=== PATIENT | female | born 1990 | race Caucasian/White ===

== ENCOUNTER 2017-01-13 20:02 | Inpatient (IN) | payer BC, MEDICAID ==
[2016-11-05 08:27] VITALS: BMI 17.7
[2017-01-13] MEDS: Lactated Ringer's 1,000 ML IV SCH (20:30)
--- NOTE | 2017-01-13 20:51 | OBADHP ---
Datetime: 01/13/2017 20:38 IP Adm Impression Other: early labor Admit Comment, IP Provider: chief complaint-contractions HPI 26 y/o at 39.5 wga with c/o brown dischareg since [facility] [address]was seen in the offiec and advi sed to come to hospital but she did not come as she was not feeling any contractions.This evening she starte dfeeling te contractions and hence she came in for evalaution Patient denies any abdominal trauma, vaginal bleeding course complicate dby anemia; care withd ayde zaldivar; NONCOMPLIANT pmh palpitations PSH denies OBGYJ HX ; TOPX1 Social hx denies tobacco,alcohol or illcit drug use Exam see exam section A/P 26 y/o at 39.5 wga in labor.FHT nonreassuring -discussed with patient about csection.risks and ebenfits of csection discussed with patient .Surg ical risks discussed.Patient voices understanding the risks and edesires to proceed Informed consent signed and on chart Anesthesia called Pelvic Type - PN: Adequate Extremities - PN: Normal Abdomen - PN: Normal Back - PN: Normal Breast - PN: Normal Lungs - PN: Normal Heart - PN: Normal Neurologic - PN: Normal General - PN: Normal Gestation - Est Wks by US: 39.5 Vital Signs Provider: Reviewed IP Chief Complaint: Uterine contractions FHR Category Provider Fetus A: Category II Dilatation, Provider: ft Effacement, Provider: 50 Station, Provider: -3 Genitourinary Exam: Normal DTRs - PN: Normal EGA AdmitDate IP: 39.5 IP Adm Impression: Term, intrauterine IP Admit Plan: Admit to unit
[2017-01-13] MEDS ORDERED: Sodium Citrate/Citric Acid 15 ml Sol PO ONE (20:56)
[2017-01-13] MEDS ORDERED: cefOXitin IV 2 gm in Dextrose 50 ML IVPB ONE ×2 (20:56→20:59)
[2017-01-13] MEDS ORDERED: Sodium Citrate/Citric Acid 15 ml Sol ONE (20:59)
[2017-01-13 21:03] LABS: RBC URINE 13 /hpf (0-3); URINE BACTERIA MOD (<OCC); URINE BILIRUBIN NEGATIVE (NEGATIVE); URINE BLOOD 1+ (NEGATIVE); URINE COLOR Yellow (YELLOW); URINE GLUCOSE (UA) 1+ mg/dL (Normal); URINE KETONE TRACE mg/dL (NEGATIVE); URINE LEUKOCYTE ESTERASE NEG Leu/uL (Negative); URINE PROTEIN 1+ mg/dL (NEGATIVE); URINE UROBILINOGEN NORMAL mg/dL (0.2-1.0); WBC URINE 2 /hpf (0-5)
[2017-01-13 21:07] LABS: BASO % 0.3 % (0.0-2.0); CHLORIDE 99 mmol/L (98-107); EOS # 0.1 K/uL (0.0-0.7); EOS % 0.4 % (0.0-4.0); HEMATOCRIT 39.4 % (34.0-47.0); LYMPH % 13.1 % (20.0-40.0); MEAN CELL VOLUME 92.5 fL (81.0-99.0); MEAN CORPUSCULAR HEMOGLOBIN 30.1 pg (27.0-31.0); MEAN CORPUSCULAR HGB CONC 32.6 g/dL (33.0-37.0); MEAN PLATELET VOLUME 10.1 fL (7.2-11.7); MONO # 1.3 K/uL (0.0-0.8); MONO % 8.3 % (0.0-10.0); NRBC % 0.1 % (0.0-2.0); RED CELL DISTRIBUTION WIDTH 15.4 % (11.5-14.5); SODIUM 136 mmol/L (132-148); WHITE BLOOD COUNT 15.7 K/uL (4.8-10.8)
[2017-01-13 21:08] LABS: POTASSIUM 3.9 mmol/L (3.6-5.2)
[2017-01-13 21:10] LABS: ALB/GLOB RATIO 1.2 (1.0-2.1); ALKALINE PHOSPHATASE 151 U/L (38-126); AST/SGOT 21 U/L (14-36); BILIRUBIN,TOTAL 0.5 mg/dL (0.2-1.3); CARBON DIOXIDE 22 mmol/L (22-30); GFR AFRICAN-AMERICAN > 60; TOTAL PROTEIN 7.1 g/dL (6.3-8.3)
[2017-01-13 21:11] LABS: ALT/SGPT 35 U/L (9-52); BLOOD UREA NITROGEN 10 mg/dL (7-17); CALCIUM 8.7 mg/dl (8.6-10.4); GLUCOSE,RANDOM 102 mg/dL (65-105)
[2017-01-13] MEDS ORDERED: ePHEDrine 50 mg/ml Inj ONE (21:27)
[2017-01-13] MEDS ORDERED: Morphine 1 mg/ml preservative-free Inj(Duramorph) ONE (21:28)
[2017-01-13] MEDS: cefOXitin IV 2 gm in Dextrose 50 ML IVPB SCH (21:30)
--- NOTE | 2017-01-13 22:39 | OBDS ---
DELIVERY PERSONNEL Delivery Doctor: Emmy Chapa MD Scrub Nurse: Cassandra Rocha OBT Soil Technician: Isabelle Bernstein RN Anesthesiologist: MATERNAL INFORMATION Delivery Anesthesia: Spinal Estimated Blood Loss (ml): 700 Maternal Complications: None Provider Comments: primary csection doen for nonreassuirng tracing apagsr 9/ at1 and 5 min of life ebl 700cc patient and infant stable LABOR SUMMARY EDC: 01/15/2017 00:00 LABOR INFORMATION Onset of Labor: 01/13/2017 19:00 STAGES OF LABOR Stage 3 hrs: 0 Stage 3 min: 1 Total Time in Labor hrs: 3 Total Time in Labor min: 1 CSECTION DELIVERY Primary Indication: Nonreassuring Status CSection Urgency: Emergency CSection Incidence: Primary Labor: Labor CSection Incision: Lower Uterine Transverse Uterine Closure: Double-layer closure BABY A INFORMATION Infant Delivery Date/Time: 01/13/2017 22:00 Method of Delivery: Born in Route : No : N/A Forceps: N/A Vacuum Extraction: N/A Shoulder Dystocia : No SHOULDER DYSTOCIA BABY A Delivery Date/Time: 01/13/2017 22:00 PRESENTATION/POSITION BABY A Presentation: Cephalic Cephalic Presentation: Vertex Vertex Position: Right Occipital Posterior Breech Presentation: N/A PLACENTA INFORMATION BABY A Placenta Delivery Time : 01/13/2017 22:01 Placenta Method of Delivery: Manual Removal Placenta Status: Delivered SCORES BABY A Heart Rate 1 min: >100 bpm Resp Effort 1 min: Good Cry Reflex Irritability 1 min: Cough or Sneeze or Pulls Away Muscle Tone 1 min: Active Motion Color 1 min: Body [place], Extremities Blue Resuscitation Effort 1 min: Tactile Stimulation SCORE 1 MIN: 9 Heart Rate 5 min: >100 bpm Resp Effort 5 min: Good Cry Reflex Irritability 5 min: Cough or Sneeze or Pulls Away Muscle Tone 5 min: Active Motion Color 5 min: Body [place], Extremities Blue SCORE 5 MIN: 9 INFORMATION BABY A Gestational Age at Delivery: 39.5 Gestational Status: Term Infant Outcome : Liveborn Infant Condition : Stable Infant Sex: Female IDENTIFICATION/MEDS BABY A ID Band Number: [id number] ID Band Location: Left Leg; Left Arm Sensor Applied: Yes Sensor Number: [id number] Sensor Location : Cord Clamp WEIGHT/LENGTH BABY A Birthweight (gms): 3020 Infant Weight (lb): 6 Weight (oz): 10 Length Inches: 19.00 Length cms: 48.3 CORD INFORMATION BABY A No. Cord Vessels: 3 Nuchal Cord : N/A Cord Blood Taken: Yes Suction: Mouth; Nose ASSESSMENT BABY A Complications: None Physical Findings at Delivery: Within Normal Limits Respirations: Appears Normal Social Sciences Lecturer/ALS Called : No Care By: /JORY GRANDA Transferred To: Nursery
[2017-01-14] MEDS ORDERED: cefOXitin IV 2 gm in Dextrose 50 ML IVPB ONE ×2 (05:00→13:41)
[2017-01-14] MEDS: Lactated Ringer's 1,000 ML IV SCH (05:01)
[2017-01-14] MEDS: cefOXitin IV 2 gm in Dextrose 50 ML IVPB SCH ×3 (05:02→14:24)
[2017-01-14 07:24] LABS: EOS % 0.2 % (0.0-4.0); LYMPH # 1.9 K/uL (1.0-4.3); MEAN CORPUSCULAR HEMOGLOBIN 30.2 pg (27.0-31.0); MEAN PLATELET VOLUME 10.6 fL (7.2-11.7); MONO # 1.1 K/uL (0.0-0.8)
[2017-01-14 07:37] LABS: BASO % 0.1 % (0.0-2.0); HEMATOCRIT 31.1 % (34.0-47.0); LYMPH % 11.2 % (20.0-40.0); MEAN CELL VOLUME 93.1 fL (81.0-99.0); MEAN CORPUSCULAR HGB CONC 32.4 g/dL (33.0-37.0); MONO % 6.9 % (0.0-10.0); RED CELL DISTRIBUTION WIDTH 15.1 % (11.5-14.5); WHITE BLOOD COUNT 16.5 K/uL (4.8-10.8)
--- NOTE | 2017-01-14 07:41 | OBPPN ---
Datetime: 01/14/2017 07:37 PP Pain Prov: Within normal limits PP Nausea Prov: Denies PP Flatus Prov: No PP Comments Phys Exam Prov: fudus below umblic ext mild edema,no cald ten incision clean and dry PP Impression Prov: Normal progression PP Plan Prov: Continue present management PP Progress Note Prov: pt was seen at bed side, pain under control,no n/v, tolerating deit,voiding,m in ocha, flatuas+ pod#1 s/p c/s cbc reg deit encourage ambulation cont post op care Vital Signs Provider PP: Reviewed; Within Normal Limits
--- NOTE | 2017-01-14 08:11 | OP ---
PROCEDURE DATE: 01/13/2017 PREOPERATIVE DIAGNOSES: 1. Nonreassuring heart tracing. 2. Term intrauterine . POSTOPERATIVE DIAGNOSES: 1. Nonreassuring heart tracing. 2. Term intrauterine . PROCEDURE PERFORMED: Primary lower transverse section. SURGEON: Christiano Chapa MD SPECIAL EDUCATION RESOURCE TEACHER: Dr. Gio Avendano. Please note that the procedure required a surgical scheduler to assist wit h the entry into the abdominal cavity, to assist with the delivery of the infant and to assist with t he closure of the abdominal wall layers. The surgical services director was present and scrubbed for the ent sole duration of the procedure. ANESTHESIA: Spinal. ANESTHESIOLOGIST: Dr. Hensley COMPLICATIONS: None. ESTIMATED BLOOD LOSS: 700 mL. FINDINGS: A female infant in direct occiput posterior position with Apgars of 9 at 1 minute and 9 at 5 minutes. Normal uterus, tubes, and ovaries. weight of the infant being 6 pounds 10 ounces. PROCEDURE IN DETAIL: The patient is a 26-year-old female who presented at 39 weeks and 5 days in ear ly labor. She was found to have a nonreassuring heart tracing and thereafter she was consented for primary section. Prior to the section, there was a discussion done and the risk of ble eding, infection, injury to nearby organs as well as risk of amniotic fluid embolism, , etc., wa s discussed with patient. The patient voiced understanding of the risks with the surgery and desired to proceed. All questions were answered. Once inside the OR, the spinal anesthesia was then admini stered by the anesthesia team and thereafter, she was placed in dorsal supine position with a leftwar d tilt. She was then prepped and draped in the usual sterile manner. A Bello catheter had already b een placed transurethrally prior to bringing the patient to the OR. A Pfannenstiel skin incision was then made with the scalpel and carried through to the underlying layer of fascia with the help of rosalba acuna Bovie. The fascia was then incised in the midline and the incision extended laterally with Ndiaye sc issors. The superior aspect of the fascial incision was then grasped with Ashly clamps, elevated, a nd the underlying rectus muscles dissected off. Attention was then turned to the inferior aspect of the fascial incision, which in a similar fashion was grasped with Ashly clamps, elevated, and the un derlying rectus muscle dissected off. The rectus muscle was then in the midline and the pe ritoneum was entered bluntly. The peritoneum was bluntly stretched. Bladder blade was then inserted and vesicouterine peritoneum identified. A transverse incision was made over the vesicouterine eri toneum with the help of Metzenbaum scissors and this incision extended laterally sharply with the hel p of Metzenbaum scissors. Then, a bladder flap was thereafter created sharply. The bladder blade wa s reinserted and the lower uterine segment identified. A transverse incision was made over the lower uterine segment with the help of a fresh scalpel. The hysterotomy was bluntly stretched. The membr anes were ruptured and meconium stained amniotic fluid was noted. The infant's head was then deliver ed from a direct occiput posterior position. The body and the shoulders were delivered without any d ifficulty and the cord was then clamped and cut. The was handed over to the waiting pediatric ians. A segment of the cord was taken in order to obtain cord blood pH. Cord blood was thereafter c ollected and the placenta was then manually removed and uterus was exteriorized and cleared of all cl ots and debris. The uterine incision was repaired with 0 Polysorb in a running-locked fashion. A se cond layer of same suture was used to imbricate the first layer and also to obtain hemostasis. Adequ ate hemostasis was noted from the uterine incision repair site. The cul-de-sac and the pelvis was ir rigated and suctioned. The uterus was then returned to the patient's abdomen. The hysterotomy was i nspected for hemostasis and adequate hemostasis was noted from it. The bladder flap was inspected fo r hemostasis and a bleeding point on the bladder flap was noted and this was cauterized. Thereafter, adequate hemostasis was noted. The bleeding point on the bladder flap was noted to be away from the bladder and then only it was cauterized. Surgicel was placed over the uterine incision repair site. The peritoneum was then closed with 2-0 Polysorb in a running fashion. The muscle layer was reappr oximated with 2-0 Polysorb in a continuous manner. The fascia was closed with 0 Vicryl in a running fashion. The skin was then closed with andrade. The sponge, lap, needle, and instrument count was c orrect at the end of the procedure, as reported to me. The patient tolerated the procedure well. Th e patient was thereafter cleaned and taken to the recovery room in stable condition. Christiano Chapa MD cc: [id number] TT: 01/14/2017 08:10:57 en
[2017-01-14] MEDS: Simethicone 80 mg Chewtab PO SCH ×3 (13:04→21:51)
[2017-01-15] MEDS: Oxycodone/Acetaminophen 5/325 mg Tab PO PRN ×3 (01:31→16:58)
[2017-01-15] MEDS: Simethicone 80 mg Chewtab PO SCH ×5 (09:52→23:00)
[2017-01-15] MEDS ORDERED: Influenza Virus Vaccine 45 mcg/0.5 ml Syr IM ONE (17:43)
[2017-01-15 20:33] LABS: BASO % 0.3 % (0.0-2.0); EOS # 0.2 K/uL (0.0-0.7); HEMATOCRIT 30.4 % (34.0-47.0); LYMPH # 1.9 K/uL (1.0-4.3); LYMPH % 11.8 % (20.0-40.0); MEAN CELL VOLUME 92.8 fL (81.0-99.0); MEAN CORPUSCULAR HEMOGLOBIN 30.3 pg (27.0-31.0); MEAN CORPUSCULAR HGB CONC 32.6 g/dL (33.0-37.0); MONO # 1.5 K/uL (0.0-0.8); MONO % 9.5 % (0.0-10.0); NRBC % 0.1 % (0.0-2.0); RED CELL DISTRIBUTION WIDTH 14.9 % (11.5-14.5); WHITE BLOOD COUNT 16.1 K/uL (4.8-10.8)
--- NOTE | 2017-01-15 23:43 | OBPPN ---
Datetime: 01/15/2017 18:51 PP Pain Prov: Within normal limits PP Nausea Prov: Denies PP Flatus Prov: No PP BM Prov: No PP Breasts Prov: Normal PP Heart Prov: Normal PP Lungs Prov: Normal PP Abdomen/Uterus Prov: Normal PP Lochia Prov: Normal PP Vulva/Perineum Prov: Not Done PP CVA Tenderness Prov: Normal PP Extremities Prov: Normal PP C/S Incision Prov: Normal PP Progress Prov: Normal PP Comments Phys Exam Prov: Skin: warm, dry, intact HEENT: full ROM Breasts: right nipple slightly bruised; otherwise, no masses. Not engorged Lungs: CTA bilaterally Cardiac: mild tachycardia; normal S1, S2 Abdomen: Softly distended. (+) BS. Incision with subcuticular closure - clean, dry and intact Extremities: no calf tenderness, cyanosis or edema All other systems reviewed and are negative PP Impression Prov: Normal progression PP Plan Prov: Continue present management PP Progress Note Prov: Patient seen and evaluated earlier in the morning: at that time received in b ed; FOB present. C/O incisional pain, pain scale 9/10. At approximately 1100 hours received percocet "which isn't doing much for me"; pain scale after 8/10. has not received any motrin. Ambulating somew hat in her room to bathroom; voiding without difficulty. (-) flatus; (-) BM. Breast- and bottlefeedin g P.E.: as above. WD in NAD. Awake, alert, oriented to time, person and place. Cooperative - POD#1 H/H10.1/31.1 Assessment: 26 yo P1011, S/'P priomary C/S for NRFHRT at 39 weeks. Afebrile; vitalsigns noted for mild tachycardia - presumably related to pain relief. Will also include motrin for pain control. Anem ia noted; currently asymptomatic. Clinically stable. Plan: 1) as above 2) Continue iron 3) Ambulate in hallways 4) Anticipate discharge home 01/16/17 Notified by R.N.: H.R. in the mid 100sbpm despite pain medications - CBC now - re-evaluate Addendum: 2320 hour - Patient received in room 455, taking a shower. Pain is much improved; pain scale 6/10 (S/P motri n at 2200 hours) - H/H 9.9/30.4. Vital signs reviewed as of 2200 hours: BP 124/77 HR 102 bpm Assessment: POD#2 26 yo P1011, S/P prim LTCS. Mild tachycardia is appropriate physoilogic response to intraop blood loss. H/H is stable. Patient is asymptomatic and otherwise, hemodynamically stable. . Pain is better controlled. Patient is clinically stable. Plan: 1) continue present management 2) Anticipate discharge ho 01/16/17 Vital Signs Provider PP: Reviewed
[2017-01-16] MEDS: Oxycodone/Acetaminophen 5/325 mg Tab PO PRN ×2 (00:37→09:03)
[2017-01-16 08:42] VITALS: BP 121/62; PULSE 88; RESP 18; TEMP 98.1; O2SAT 98
[2017-01-16] MEDS: Simethicone 80 mg Chewtab PO SCH (09:03)
--- NOTE | 2017-01-16 10:33 | OBPPN ---
Datetime: 01/16/2017 10:26 PP Pain Prov: Within normal limits PP Pain Prov comment: Complains of incisional pain. No bowel movent but passing flatus PP Nausea Prov: Denies PP Flatus Prov: Yes PP BM Prov: No PP Breasts Prov: Normal PP Heart Prov: Normal PP Lungs Prov: Normal PP Abdomen/Uterus Prov: Normal PP Lochia Prov: Normal PP Vulva/Perineum Prov: Normal PP CVA Tenderness Prov: Normal PP Extremities Prov: Normal PP C/S Incision Prov: Normal PP Progress Prov: Normal PP Comments Phys Exam Prov: Abdomen soft, nontender. Good bowel sounds. Incision C/D/I. PP Impression Prov: Normal progression PP Plan Prov: Discharge PP Progress Note Prov: Stable. Discharge home. Follow up in clinic in 2 weeks Vital Signs Provider PP: Reviewed; Within Normal Limits Vital Signs Provider Details PP: Hgb 9.9g/dl.
--- NOTE | 2017-01-16 10:33 | OBDCSUM ---
Datetime: 01/16/2017 10:26 Discharged to, Provider: Home Follow up at, Provider: [facility] Disch Instr Activity: Normal activity; May be up to bathroom; May be up for meals; May Shower Disch Instr Diet: Regular Discharge Diet restrict Prov: none Discharge Instructions, Provider: Routine instructions given Discharge Diagnosis, Provider: Term Delivered Discharge Time: 01/16/2017 12:00 Follow up in weeks, Provider: January 20 Disch Referrals: None Contraception discussed, Prov: Yes Disch Activity Restrictions: No exercising; Minimize stair-climbing; No sexual activity; Nothing in vagina - [place], tampons, douche Discharge Comment, Provider: Delivery, uncomplicated. Discharge Diagnosis Prov Other: Section Contraception after Delivery: Undecided
== END 2017-01-16 15:45 | disposition home or self-care (01) | DRG 766 ==
LOC: C.EROB 20:02 → C.4D 20:30 → C.4M 01-14 13:45
PROVIDERS: ADMIT Student in an Organized Health Care Education/Training Program; ATTEND Student in an Organized Health Care Education/Training Program
PROC: 10D00Z1 Extraction of Products of Conception, Low, Open Approach (ICD-10-PCS; principal; 2017-01-13)
DX: O76 Abnormality in fetal heart rate and rhythm complicating labor and delivery (principal); O99.02 Anemia complicating childbirth; D64.9 Anemia, unspecified; Z91.19 Patient's noncompliance with other medical treatment and regimen; Z3A.39 39 weeks gestation of pregnancy; Z37.0 Single live birth